=== PATIENT | female | born 1960 | race Caucasian/White ===

== ENCOUNTER 2020-05-28 17:41 | Inpatient (IN) | payer MEDICARE, MEDICAID ==
[~2020-05-28] VITALS: Ht 160 cm; Wt 61.2 kg
[~2020-05-28 17:41] MED LIST: AMBIEN10 M1 PO; COLACE CLEAR50 MG PO; DICYCLOMINE HCL10 MG PO; LYRICA100 M1 PO; MIRALAX POWDER17 G1 PO; OMEPRAZOLE20 M2 PO; PRILOSEC20 M1 PO; PROAIR HFA8.5 GM INH; VICODIN 5-3001 EACH PO; XANAX1 MG PO
[2020-05-28] MEDS ORDERED: WELLBUTRIN SR150 MG PO (18:07)
[2020-05-28] MEDS ORDERED: HYDROXYZINE HCL25 MG PO (18:08)
[2020-05-28] MEDS ORDERED: IBU800 M2 PO (18:10)
[2020-05-28] MEDS ORDERED: KLOR-CON M2020 ME1 PO (18:11)
[2020-05-28] MEDS ORDERED: LISINOPRIL20 MG PO (18:12)
[2020-05-28] MEDS ORDERED: PERCOCET 5-3251 EACH PO (18:17)
[2020-05-28] MEDS ORDERED: PROTONIX40 MG PO (18:18)
[2020-05-28] MEDS ORDERED: PROMETHAZINE25 M1 PO (18:19)
[2020-05-28] MEDS ORDERED: RISPERDAL0.5 MG PO ×2 (18:20)
[2020-05-28] MEDS ORDERED: TRAZODONE50 MG PO (18:21)
[2020-05-28] MEDS ORDERED: MOBIC15 MG PO (18:22)
[2020-05-28 19:05] VITALS: BP 124/66
[2020-05-28 20:00] VITALS: BP 124/66
[2020-05-28] MEDS ORDERED: SPIRIVA -- 3018 MCG INH (20:04)
[2020-05-28 20:06] VITALS: BP 124/66
--- NOTE | 2020-05-28 20:36 | NUR ---
GREGORY MAHONEY a 59 year old F admitted via stretcher from the ADMITTING as a emergency 72 hr. hold admission. Arrived on unit at 1905PM. ALLERGIES: SULFA AND BACTRIM. Vital signs are: 97.5-84-22 124/66. CLIENT IS PINK SLIPPED AND UNABLE TO SIGN VOLUNARY. The client signed the following forms with stated understanding: Authorization For The Release of Medical Information, Clothing List, consent and Release Forms/Receipt of Rights, Acknowledgement of Advance Directive Information, Behavioral Health Consent Form, and Informed Consent of Medications. Admitted under the services [facility]. A search was conducted and hazardous articles were removed. Client was oriented to the unit. SNACK AND FLUIDS PROVIDED BY STAFF. SHOWER COMPLETED AFTER ADMISSION PROCESS. ALBA MAYER
--- NOTE | 2020-05-28 20:45 | NUR ---
GREGORY MAHONEY a 59 year old F admitted via stretcher from the ADMITTING as a emergency 72 hr. hold admission. Arrived on unit at 1905PM. ALLERGIES: SULFA AND BACTRIM. Vital signs are: 97.5-84-22 124/66. CLIENT IS PINK SLIPPED AND UNABLE TO SIGN VOLUNARY. The client signed the following forms with stated understanding: Authorizati For The Release of Medical Information, Clothing List, consent and Release Forms/Receipt of Rights, Acknowledgement of Advance Directive Information, Behavioral Health Consent Form, and Informed Consent of Medications. Admitted under the services of JONATAN Armstrong MD. A search was conducted and hazardous articles were removed Client was oriented to the unit. SNACK AND FLUIDS PROVIDED BY STAFF. SHOWER COMPLETED AFTER ADMISSION PROCESS. ALBA MAYER
--- NOTE | 2020-05-28 20:54 | NUR ---
NOTIFIED DR DUGGAN OF ADMISSION. DR JC IS HOSPITALIST
--- NOTE | 2020-05-29 00:49 | NUR ---
24 HR chart check completed.
[2020-05-29 06:41] LABS: BASO % 0.5 % (0.0-1.0); EOS # 0.2 10*3/uL (0.0-0.4); EOS % 3.3 % (1.0-4.0); HEMATOCRIT 39.5 % (37.0-47.0); LYMPH # 1.8 10*3/uL (1.3-4.4); LYMPH % 30.8 % (27.0-41.0); MEAN CELL VOLUME 93.6 fl (81.0-99.0); MEAN CORPUSCULAR HGB 29.9 pg (27.0-31.0); MEAN CORPUSCULAR HGB CONC 31.9 g/dl (33.0-37.0); MEAN PLATELET VOLUME 9.8 fl (9.6-12.3); MONO # 0.7 10*3/uL (0.1-1.0); MONO % 11.6 % (3.0-9.0); NEUT % 53.4 % (47.0-73.0); PLATELET COUNT AUTOMATED 243 10*3/uL (130-400); RED BLOOD COUNT 4.22 10*6/uL (4.10-5.10); RED CELL DISTRI WIDTH 15.2 % (0-14.5); WHITE BLOOD COUNT 5.7 10*3/uL (4.8-10.8)
[2020-05-29 06:54] LABS: ALKALINE PHOSPHATASE 74 U/L (45-117); BUN 16 mg/dl (7-24); CHLORIDE 114 mmol/L (98-107); CHOLESTEROL 173 mg/dL (<200); CREATININE 1.09 mg/dL (0.55-1.02); HDL CHOLESTEROL 48 mg/dl (40-60); LDL CHOLESTEROL 107 mg/dL (9-159); POTASSIUM 3.8 mmol/L (3.5-5.1); SGOT/AST 10 IU/L (3-35); SGPT/ALT 17 U/L (12-78); SODIUM 142 mmol/L (136-145); TOTAL PROTEIN 6.2 gm/dL (6.4-8.2); TRIGLYCERIDES 91 mg/dl (<150); VLDL CHOLESTEROL 18 mg/dL (6-40)
--- NOTE | 2020-05-29 07:40 | NUR ---
PATIENT COMPLAINING OF CHEST PAIN ALONG CHEST, WOULD NOT ELABORATE OF ON RATING OF PAIN, FREQUENCY, RADIATING OR DESCRIPTION OF PAIN OR BURNING. NO DIAPHORESIS, NAUSEA OR EMESIS OBSERVED. THEN PATIENT STATED IT COULD BE MY ANXIETY OR STOMACH. I HAVE TO GO TO THE BATHROOM, THE JUMPED UP OUT OF BE TO THE BATHROOM FOR TOILETING NEEDS. PATIENT AMBULATED DOWN HALLWAY WITH NOT OBSERVED DISTRESS AND STATED "I FEEL BETTER, NOW MY PAIN IS ON BACK SIDE OF NECK" VITALS: 97.7, 84, 20, 113/55, 96%RA. DR. LEON NOTIFIED.
--- NOTE | 2020-05-29 07:48 | NUR ---
DR. LEON ON UNIT TO ASSESS PAIN. PATIENT VOICED HAVING PAIN ALL OVER. NO LONGER HAVING CHEST PAIN. UPDATED PATIENT ON NURSES REPORT, MEDICATIONS THAT NEED REVIEWED. PATIENT STATED "I HAVE THE MEDICAL CARD AND CAN ONLY AFFORD SOME OF THE MEDICATIONS." REPORTED TO DR. LEON OF [employer] WHEN IT WAS REFILL AND ONLY HAVE 4 PILLS LEFT THAT WERE SENT TO PHARMACY. PATIENT BECAME ANGRY TOWARDS NURSE AND STATED "I HAVE MEDICINE IN THE BOTTOM OF MY PURSE, FUCK YOU" AND AMBULATED DOWN TO HER ROOM.
[2020-05-29 08:05] VITALS: BP 124/68
--- NOTE | 2020-05-29 08:13 | NUR ---
Patient eating breakfast in dining room with peers. Respirations easy and regular. Vital signs stable. No overt distress. [facility] to see pt at this time, update given.
--- NOTE | 2020-05-29 09:00 | NUR ---
Treatment Plan meeting was held this a.m. with Dr. Rodriguez via telephone, SHEELA Tam RN, MOTOR VEHICLE REPRESENTATIVE-S and Linen Keeper in attendance. Plan for discharge Next Week. Pt. came to [facility] from Home. Will return home at this point.
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
--- NOTE | 2020-05-29 10:55 | NUR ---
ON UNIT TO SEE PT AT THIS TIME.
--- NOTE | 2020-05-29 11:22 | NUR ---
PRN ATIVAN EFFECTIVE. PATIENT APPEARS LESS DISTRESSED. CALM DEMEANOR. RESTING IN BED, NO LONGER PACING OR SHAKING OF SKIN. CONTINUE TO MONITOR.
--- NOTE | 2020-05-29 15:04 | NUR ---
Shift chart check completed.
--- NOTE | 2020-05-29 15:39 | NUR ---
PHYSICAL THERAPY Pt admitted to U for major depression screened received regarding PT. Spoke with nurse Chavez on U per staff pt is ambulating t/o unit with steady gait, no skilled needs at this time will discontinue PT orders. Paola Gilmore PT
--- NOTE | 2020-05-29 15:40 | NUR ---
OT NOTE Occupational therapy order received and chart reviewed. Patient admitted for major depression disorder and anxiety disorder. Per chart review and discussion with [facility] Nurse Kathy, patient is independent with ADLs and is ambulating throughout the [facility]. No further OT needs at this time. Will discharge OT orders. Thank you for the referral. Yuridia Guerrero, OTR/L
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
--- NOTE | 2020-05-29 18:16 | NUR ---
PATIENT COMPLAINING OF LOWER BACK PAIN, RATING PAIN 9/10, ICE PROVIDED REQUESTED AND PRN PEROCET 5/325MG PO GIVEN AT THIS TIME. PATIENT RESTING IN CHAIR AT THIS TIME.
[2020-05-29 19:17] VITALS: BP 124/68
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
--- NOTE | 2020-05-30 01:37 | NUR ---
TO DESK COMPLAINING OF INSOMNIA. APPEARED TO BE SLEEPING PER MW ON ROUNDS. RESISTIVE TO RELAXATION TECHNIQUES. ROZEREM GIVEN PER REQUEST. WILL MONITOR
--- NOTE | 2020-05-30 01:39 | NUR ---
24 HR chart check completed.
--- NOTE | 2020-05-30 04:53 | NUR ---
DOWN TO GET ICE WATER. BOOK GIVEN AT CLIENTS REQUEST T READ. HAD TO BE REDIRECTED TO ROOM SHE SAYS SHE WAS CONFUSED TO WHERE ROOM WAS.
--- NOTE | 2020-05-30 05:53 | NUR ---
APPROX 5 HOURS OF BROKEN SLEEP
[2020-05-30 08:00] VITALS: BP 119/66
--- NOTE | 2020-05-30 09:00 | NUR ---
Treatment Plan meeting was held this a.m. with Dr. Rodriguez via telephone, SHEELA Tam, RN, AT, FINAL APPLICATION REVIEWER-S and Integrated Logistics Support Manager. Plan for discharge Next Week.
[2020-05-30 11:24] LABS: BILIRUBIN NEGATIVE; BLOOD TRACE-INTACT (NEGATIVE); CLARITY CLEAR (CLEAR); COLOR YELLOW (YELLOW); GLUCOSE NEGATIVE; KETONE NEGATIVE; LEUKO ESTERASE NEGATIVE (NEGATIVE); NITRITE NEGATIVE (NEGATIVE); PH 6.5 (4.5-8.0); SPECIFIC GRAVITY 1.015 (1.001-1.030); UROBILINOGEN 0.2 E.U./dl (0.0-1.0)
[2020-05-30 11:36] LABS: BACTERIA 1+; WBC 0-2 wbc/hpf (0-5)
--- NOTE | 2020-05-30 11:57 | NUR ---
AM GROUP PT ATTENDED MORNING GROUP THERAPY AND WAS ANXIOUS AND "IN PAIN" AT THE START OF GROUP BUT WAS EASILY DISTRACTED BY MAKING CONVERSATION. PT WAS OPEN, HONES AND TALKATIVE AND WAS GIVEN ROOM TO VENT. PT IS LOOKING FORWARD TO LEARNING SOME COPING SKILLS FOR DEPRESSION AND POOR DECISION MAKING. PT EXPRESSED THAT SHE HAD THOUGHT OF KILLING HER SON'S GIRLFRIEND BECAUSE SHE IS MEAN TO HIM BUT STATED, "I WOULD NEVER DO THAT, SHE JUST MAKES ME MAD BECAUSE SHE IS MEAN TO MY SON"
--- NOTE | 2020-05-30 12:13 | NUR ---
Nutriitonal Support Services Note: Appetite is fair for meals, pt is not eating well. Regular diet as ordered. Scabs noted to arms. Recommend Ensure po TID with meals to help increase kcal and protein. Will follow. Amber Brown Rdn Ld
--- NOTE | 2020-05-30 15:49 | NUR ---
PM GROUP/MANICURES PT ATTENDED AFTERNOON GROUP THERAPY AND PARTICIPATED BY HAVING HER NAILS DONE AND LISTENING TO MUSIC. PT EXPRESSED NO SUICIDAL OR HOMOCIDAL IDEATIONS WHILE IN GROUP. PT WAS PLEASANT AND TALKATIVE.
[2020-05-30 19:54] VITALS: BP 106/67
--- NOTE | 2020-05-30 20:43 | NUR ---
REDIRECTED CLIENT ON USE OF ATIVAN. STATES SHE WANTS IT FOR SLEEP AND TOLDL HER THAT IS NOT IT'S PURPOSE AND WE HAVE OTHER THINGS. THINKS SHE WILL GET RX OF ATIVAN UPON DISCHARGE AND CLARIFIED THAT WOULD NOT HAPPEN. WILL CONTINUE TO MONITOR
--- NOTE | 2020-05-30 20:50 | NUR ---
Patient alert and oriented to person,place and time. Mood calm and cooperative. Multiple requests to use phone. Placed phone call to David,patient's son,but answering pedro picked up. Denies SI/HI,hallucinations or delusions. No s/s of responding to internal stimuli noted at this time. Patient compliant with HS medications without any difficulty. Provided 1:1 for emotional support. Redirected when needed. Plan to continue to encourage medication compliance. Also continue to provide emotional support and redirection when needed. Will continue to monitor moods/behaviors. Q 15 minute safety checks continued and maintained. See [facility] flowsheet for further documentation.
--- NOTE | 2020-05-31 06:10 | NUR ---
Patient slept approx 6 hours sleep throughout shift. Q 15 minute safety checks continued and maintained.
[2020-05-31 09:07] LABS: FOLLICLE STIMULATING HORMONE 79.8 mIU/mL (.); PROGESTERONE 0.1 ng/mL (.)
--- NOTE | 2020-05-31 09:11 | NUR ---
Treatment Plan meeting was held this a.m. with Dr. Rodriguez RN, DENTAL INSURANCE COORDINATOR-S and Textiles Sales Representative. Plan for discharge Next Week. Pt. will return home at discharge.
[2020-05-31 09:17] VITALS: BP 144/87
--- NOTE | 2020-05-31 09:18 | NUR ---
DR SMITH AND TEAM ON UNIT TO ASSESS PT.
--- NOTE | 2020-05-31 10:03 | NUR ---
PT C/O LOWER BACK PAIN 07/14. PT STATED THAT HER MOBIC DID NOT HELP, PT MEDICATED WITH PERCOCET PRN PER ORDERS. WILL CONTINUE TO MONITOR.
--- NOTE | 2020-05-31 13:45 | NUR ---
SPOKE WITH DR SMITH AT [phone] RE: PT REQUEST FOR MIRALAX AND ALSO THAT SHE RECEIVES AN INHALER ROUTINELY AT HOME AND HAS NOT RECEVIED ONE HERE. PER DR SMITH HE WILL GO AHEAD AND TAKE CARE OF THAT.
--- NOTE | 2020-05-31 14:59 | NUR ---
Met with pt and made numerous calls to pt's creditors, past employers, and utiltiy assistance programs. Problem solved with pt. Discussed pt's previous life choices and lessons that pt has learned from these choices.
--- NOTE | 2020-05-31 16:12 | NUR ---
P: PT REPORTS FEELING SAD AND DEPRESSED I: PROVIDE EMOTIONAL SUPPORT AND 1:1 FOR PT TO VOICE FEELINGS, ENCOURAGE MED COMPLIANCE AND PROVIDE MED EDUCATION, ENCOURAGE GROUP PARTICIPATION AND SOCIALZIATION R: PT ALERT TO PERSON, PLACE, TIME AND SITUATION. PT MED COMPLIANT WITHOUT DIFFICULTY. PT CONTINUES TO REPORT FEELING SAD AND DEPRESSED. PT AMBULATORY THROUGHOUT UNIT, GAIT STEADY. PT CONTINENT OF BOWEL AND BLADDER. NO HALLUCINATIONS OR DELUSIONS NOTED. PT DENIES ANY SUICIDAL THOUGHTS OR BEHAVIORS. P: MONITOR PT BEHAVIORS ON Q15 MIN SAFETY CHECKS, ENCOURAGE MED COMPLIANE AND PROVIDE MED EDUCATION, PROVIDE EMOTIONAL SUPPORT AND 1:1 FOR PT TO VOICE FEELINGS, ENCOURAGE GROUP PARTICIPATION AND SOCIALZATION.
--- NOTE | 2020-05-31 16:50 | NUR ---
PT COMPLAINED OF HEADACHE MEDICATED WITHN TYLENOLM 650 MG PO PRN PER ORDERS.
[2020-05-31 20:00] VITALS: BP 132/61
--- NOTE | 2020-05-31 21:38 | NUR ---
Patient alert and oriented to person,place and time. Mood calm and cooperative. Denies SI/HI,hallucinations or delusions. No s/s of responding to internal stimuli noted at this time. Patient compliant with HS medications without any difficulty. Provided 1:1 for emotional support. Redirected when needed. Plan to continue to encourage medication compliance. Also continue to provide emotional support and redirection when needed. Will continue to monitor moods/behaviors. Q 15 minute safety checks continued and maintained. See [facility] flowsheet for further documentation.
--- NOTE | 2020-06-01 05:56 | NUR ---
Patient slept approx. 7 hours throughout shift. Q 15 minute safety checks continued and maintained.
--- NOTE | 2020-06-01 06:32 | NUR ---
Medicated with Percocet po prn for c/o chronic back discomfort patient rated 6/10. Will monitor effectiveness.
[2020-06-01 07:23] VITALS: BP 110/73
--- NOTE | 2020-06-01 07:27 | NUR ---
Patient resting quietly with no c/o discomfort. Respirations easy and regular. Vital signs stable. No overt distress. RHONDA KRUGER
--- NOTE | 2020-06-01 09:41 | NUR ---
DR SMITH ON UNIT TO ASSESS PT, UPDATE PROVIDED.
--- NOTE | 2020-06-01 10:36 | NUR ---
P- LABILE MOOD. EASILY AGITATED. PREOCCUPIED WITH MAKING PHONE CALLS. I- ORIENTATION, MOOD AND BEHAVIORS ASSESSED. ASSESSED PT FOR SI/HI, INTENT OR PLAN. ASSESSED PT FOR S/S HALLUCINATIONS, PARANOIA AND/OR DELUSIONS. MEDICATIONS ADMINISTERED PER PHYSICIAN'S ORDERS. ASSISTANCE WITH ADL CARE PROVIDED NEEDED. ENCOURAGED PT TO ATTEND AND PARTICIPATE IN [facility] GROUPS AND ACTIVITIES. R- PT IS ALERT AND ORIENTED X4. MEMORY INTACT. RESPS EASY AND EVEN ON ROOM AIR. MOOD IS LABILE. PT CALM, PLEASANT AND COOPERATIVE THIS MORNING. PT DENIED SI/HI, INTENT OR PLAN. NO HALLUCINATIONS, PARANOIA OR DELUSIONS NOTED. PT IS PREOCCUPIED WITH MAKING PHONE CALLS. PT BEGAN TALKING ABOUT WHO SHE WANTED TO CALL SOON SHE WOKE UP THIS MORNING AND HAS CONTINUED TO MAKE FREQUENT PHONE CALLS STARTING AT EXACTLY 9AM. PT BECOMING AGITATED WHEN HER PHONE CALLS GO UNANSWERED BY THE OTHER DEMOCRAT. STAFF ATTEMPTED TO REDIRECT PT TO GROUP AND THEN ATTEMPT PHONE CALLS AGAIN LATER. PT BECAME EXPLOSIVELY ANGRY. THREW CLOTHES DOWN THE VELIZ. STORMED UP AND DOWN THE HALLWAY YELLING AND CURSING. PUSHING ON DOORS. YELLING "YOU ALL AREN'T HELPING ME! I WANT TO GO HOME!" PT NOT PHYSICALLY AGITATED AT THIS TIME BUT IS VERBALLY AGITATED. ABE TEACHER ON UNIT AND ENGAGED IN 1:1 WITH PT AT THIS TIME. PT IS MEDICATION COMPLIANT WITHOUT DIFFICULTY. NO DISTRESS NOTED. P- PLAN TO CONTINUE CURRENT TREATMENT, CONTINUE TO MONITOR MOOD AND BEHAVIORS. PROVIDE APPROPRIATE REORIENTATION, REDIRECTION AND 1:1 NEEDED. CONTINUE TO ENCOURAGE MEDICATION COMPLIANCE WELL GROUP ATTENDANCE AND PARTICIPATION.
--- NOTE | 2020-06-01 11:40 | NUR ---
AM GROUP/SOCIALIZATION PT WAS ON THE PHONE AT THE START OF GROUP AND WAS ASKED BY NURSING TO GET OFF THE PHONE AND ATTEND GROUP THERAPY. PT BECAME VERY AGITATED AND STORMED TO THE END OF THE VELIZ YELLING, "I'M LEAVING, I WANT MY CAR AND I'M OUT OF HERE!" PT ATTEMPTED TO OPEN THE DOOR AND UNSUCCESSFUL, STORMED BACK UP THE VELIZ, YELLING OBSENITIES AND PUNCHED THE WALL A FEW TIMES HEADING BACK TO HER ROOM. PT WAS ADDRESSED BY NURSING. PT DID NOT ENTER GROUP THERAPY.
--- NOTE | 2020-06-01 13:06 | NUR ---
From this technical publications writer's office, heard pt yelling and observed pt quickly walk past and pound on the exit door. This technical publications writer went out into novak. Pt yelled as she was walking the opposite direction in the novak, "I want the hell out of here! I want it now!" Observed pt punch the novak foster as she went toward her room. Pt then walked into her room and slammed the door. This technical publications writer got report from RN about precipitating event to pt's behavior. Went to pt and met with her individually. Allowed pt to express her emotions. Assisted pt in making a call to her landlord, [employer] for HEAP assistance, a creditor, her son's father, and numerous attempts to call pt's son. Pt was anxious and becoming more anxious each time that she was unable to reach her son. This technical publications writer worked to ground pt to the moment and confirm with pt what pt knows from most recent phone conversations. Pt was finally able to speak to her son David. He explained to pt that he doesn't always have phone service in certain areas of the apartment. This technical publications writer heard David voicing support to pt. Left pt at nurses' station where pt was in need of making one more phone call to HEAP with additional information that she had gotten from David. This technical publications writer did speak to Kayla from case management at [facility] and confirmed that pt's car is in the parking garage there and can remain there until pt is able to pick it up.
--- NOTE | 2020-06-01 13:39 | NUR ---
Treatment team held this AM with Anel Escobedo TITLE SPECIALIST, RN, leasing coordinator, and this JANITOR CUSTODIAN-S. Pt to discharge next week to home with follow-up at [facility]. A referral will also be made to [facility].
--- NOTE | 2020-06-01 14:58 | NUR ---
PATIENT COMPLAINING OF BEING CONSTIPATED. ABDOMINAL ASSESSMENT COMPLETED. BOWEL SOUND ACTIVIE X 4 TO ALL QUADRANTS. PRN MOM 30ML AND BENTYL 10 MG PO GIVEN AT THIS TIME.
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
--- NOTE | 2020-06-01 18:25 | NUR ---
PT CAME TO THE DESK ASKING TO CALL HER SON AGAIN, THIS NURSE ADVISED PT THAT WE HAVE ALREADY CALLED HIM 2X WITH NO ANSWER AND HE HAS NOT CALLED BACK, ADVISED THAT WE CANNOT CONTINUE TO CALL HIM WHEN HE IS NOT ANSWERING THAT HE WILL RETURN THE CALL WHEN HE IS ABLE PT STATED "WELL HIS PHONE IS ON SILENT AND I NEED TO KNOW WHERE MY MONEY IS AND THE DR TOLD ME I COULD CALL WHENEVER I WANTED." PT ARUGEMENTATIVE WITH STAFF, THIS NURSE ADVISED THAT SHE IS ABLE TO MAKE CALLS BUT WE WILL NOT CONTINUE TO CALL SOMEONE REPEATEDLY, THAT IF HE DOES NOT CALL BACK BY 8PM, WE WILL TRAY AGAIN. PT ENTERS THE DINING ROOM AND BEGIN RUMMAING THROUGH THE CABINET THAT THE MENTAL HEALTH WORKER WAS LOOKING IN, WHEN ATTEMPTED TO REDIRECT AND ADVISED THAT STAFF COULD PROVIDE ASSISTANCE, PT BEGAN YELLING OUT AT STAFF, "I WANT TO GET THE HELL OUT OF HERE AND GO THE HELL HOME." PT RETURNED TO HER ROOM SLAMMING THE DOOR. PT RETURNED TO THE NURSES STATION AND STAFF CONTINUED TO PROVIDE EMOTIONAL SUPPORT AND 1:1 FOR PT TO VOICE FEELINGS AND PROCESS HER FEELINGS. WILL CONTINUE TO MONITOR.
[2020-06-01 20:00] VITALS: BP 115/69
--- NOTE | 2020-06-01 20:16 | NUR ---
Medicated with Percocet po prn at patient's request for c/o chronic back pain. Will monitor effectiveness.
--- NOTE | 2020-06-01 21:30 | NUR ---
Patient resting quietly in chair in diningroom with no complaints of back discomfort voiced at this time.
--- NOTE | 2020-06-01 22:42 | NUR ---
Patient alert and oriented to person,place and time. Mood calm and cooperative. Denies SI/HI,hallucinations or delusions. No s/s of responding to internal stimuli noted at this time. Patient compliant with HS medications without any difficulty. Patient preoccupied with medication and frequently asking for medication. Provided 1:1 for emotional support. Redirected when needed. Plan to continue to encourage medication compliance. Also continue to provide emotional support and redirection when needed. Will continue to monitor moods/behaviors. Q 15 minute safety checks continued and maintained. See [facility] flowsheet for further documentation.
--- NOTE | 2020-06-02 00:04 | NUR ---
Medicated with Rozerem po prn at request of patient for insomnia. Will monitor effectiveness.
--- NOTE | 2020-06-02 05:19 | NUR ---
Patient slept approx. 3 hours of interrupted sleep throughout shift. Q 15 minute safety checks continued and maintained.
[2020-06-02 07:25] VITALS: BP 106/78
--- NOTE | 2020-06-02 08:46 | NUR ---
PT ALERT TO PERSON AND PLACE. WITHDRAWN TO SELF. QUIET TIN DONNINGROOM. NO HALLUCINATIONS OR DELUSIONS NOTED. MEDICATION COMPLIANT. MEDICATION EDUCATION PROVIDED. 1:1 PROVIDED FOR THERAPEUITC COMMUNICATION. PT TEARFUL AT TIMES. ISOLATIVE TO ROOM. PT DENIES SI/HI. REPORTS BEING SAD. STATES SHE IS EATING OK HOWEVER IS NOT SLEEPING WELL. AMBULATORY WITH A STEADY GAIT. WILL CONTINUE TO ENCOURAGE MEDICATION COMPLAINCE AND INCREASED INTERACTIONS WITH STAFF AND PEERS. MONITOR BEHAVIORS WITH Q15 MINUTE SAFETY. SEE [facility] FLOWSHEET FOR SPECIFIC MONITORING.
--- NOTE | 2020-06-02 09:06 | NUR ---
DR SMITH ON UNIT TO ASSESS PT, UPDATE PROVIDED.
--- NOTE | 2020-06-02 16:20 | NUR ---
PT C/O OF STOMACH CRAMPS TO RESPIRATORY THERAPIST. PRN BENTYL AND TYLENOL GIVEN PER ORDER. PT THEN STATED SHE COULDNT HAVE A BOWEL MOVEMENT AND WAS PROVIDED MOM. PT THEN STATED SHE WAS HAVING ACID REFLUX AND REQUESTED A PRN. PRN MAALOX GIVEN AT THIS TIME. EXPLAINED TO THE PT SHGE TAKES 2 MEDS FOR ACID REFLUX AND THAT PAIN MEDICATION CAN CAUSE CONSTIPATION. PT STATED SHE UNDERSTOOD. WILL MONITOR EFFECTIVENESS OF MEDICATION.
--- NOTE | 2020-06-02 18:00 | NUR ---
DR ON UNIT TO ASSESS PT. DR STATED NOT TO GIVE THE PT A PERCOCET UNTIL HER BOWEL ISSUE IS RESOLVED. WITNESSED BY 2ND RN.
--- NOTE | 2020-06-02 18:44 | NUR ---
SPOKE WITH DR CALERO RE: PT STATING THAT SHE PREVIOUSLY TOOK CARAFATE THREE TIMES A DAY TO HELP HER STOMACH ISSUES BUT DID NOT KEEP HER FOLLOW UP APPT WITH HER OUTPT PROVIDER, PER HE WILL SPEAK TO DR SMITH TOMORROW TO SEE IF HE WANTS TO ORDER THE MEDICATION.
[2020-06-02 20:00] VITALS: BP 103/87
--- NOTE | 2020-06-02 20:31 | NUR ---
24 HR chart check completed.
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
--- NOTE | 2020-06-02 21:45 | NUR ---
ENTERED PTS ROOM ATTEMPTING TO TALK TO HER. SHE IMMEDIATELY BEGAN YELLING & THREATENED TO KILL STAFF. SHE THREW A CUP OF WATER IN THE AIR & QUICKLY JUMPED OFF HER BED & ATTEMTPED TO THROW A CHAIR AT STAFF & RAN AROUND HER BED GRABBING THE DRESSER & TRYING TO THROW IT. SHE RAN AROUND BED & ATTEMPTED TO FLIP MATTRESS. JUMPED OVER MATTRESS SWINGING & KICKING AT STAFF SEVERAL TIMES. MEDICATED AT 2130 WITH GEODON 10 MG IM. CHAIR & DRESSER REMOVED FROM PTS ROOM FOR SAFETY. DRESSER WAS FOUND TO HAVE BAGS OF CHIPS & PARTIALLY EATEN FOOD IN DRAWER.
--- NOTE | 2020-06-02 23:44 | NUR ---
SLEEPIN IN BED AT THIS TIME. APPEARS GEODON EFFECTIVE FOR MANAC EPISODE. MOVING SELF AROUND IN BED. WILL CONTINUE TO MONITOR FOR CHANGES IN MOOD/BEHAVIOR AND Q 15 MINS AND PRN FOR SAFETY
--- NOTE | 2020-06-03 05:25 | NUR ---
PT HAS SLEPT PAST 2229
[2020-06-03 07:58] VITALS: BP 104/62
--- NOTE | 2020-06-03 10:00 | NUR ---
DR. SMITH ON UNIT TO ASSESS PATIENT.
--- NOTE | 2020-06-03 11:57 | NUR ---
PT GIVEN MAG CITRATE FOR CONSTIPATION. PT STATED SHE VOMITED SOME UP IN THE TOILET. PT STATED SHE THREW UP WHAT LUNCH SHE ATE.
--- NOTE | 2020-06-03 12:00 | NUR ---
DR UPDATED ON PT STATING SHE VOMITED. DR STATED HE WOULD LOOK AT MEDS AND MAYBE ORDER ZOFRAN FOR NAUSEA.
--- NOTE | 2020-06-03 13:40 | NUR ---
RESPIRATORY THERAPIST ON UNIT TO GIVE PT A BREATHING TREATMENT. PT THEN STATED SHE WAS DIZZY AND LAID ON THE FLOOR. PT THEN TOLD THIS NURSE SHE FELL; HOWEVER THE THERAPIST STATED SHE LAID DOWN. NO INJURIES NOTED AND PT ASSISTED UP TO CHAIR. VS WNL. ROM WNL. PT THEN UP WALKING AFTER BREATHING TREATMENT AGAIN WITH A STEADY GAIT. PT DENIES ANY DIZZINESS. EXPLAINED TO PT SHE IS TIRED AND NEEDS TO RELAX.
--- NOTE | 2020-06-03 16:25 | NUR ---
PT CONTINUES TO C/O PAIN IN HER ABDOMEN. DR SMITH ON THE UNIT TO ASSESS PT AND ORDERED A KUB, EKG, MAG CITRATE, AND CARAFATE. PT DRANK MAG CITRATE AND THEN VOMITIED. PT CONTINUES TO C/O PAIN AND CRAMPING. EXPLAINED TO THE PT IT WILL CONTINUE TO CAUSE CRAMPING UNTIL THE PT HAS A BOWEL MOVEMENT. PT IN/OUT OF THE BATHROOM STATING SHE DUG HERSELF OUT. PT STATED SHE WAS THEN ABLE TO HAVE A BOWEL MOVEMENT. PT SHOWERED DUE TO INCONTINCE OF THE BOWEL. AMBULATING WITH A STEADY GAIT AT THIS TIME AND NO C/O PAIN IN THE ABDOMEN AT THIS TIME. WILL CONTINUE TO MONITOR HER. A&O X3. PREOCCUPIED WITH BOWELS TODAY. ENCOURAGED PT TO WALK AROUND AND INCREASE FLUID INTAKE. IRRITABLE MOOD AT TIMES. WITHDRAWN TO SELF. NO HALLUCINATIONS OR DELUSIONS NOTED AT THIS TIME. 1:1 PROVIDED FOR THERAPEUTIC COMMUNICATION. DISCUSSED COPING SKILLS WITH THE PATIENT AND APPROPRIATE BEHAVIORS VS NON APPROPRIATE BEHAVIORS. BEHAVIORS MONITORED WITH Q15 MINUTE SAFETY CHECKS. WILL CONTINUE TO ASSIST PT IN IDENTIFYING COPING SKILLS AND WILL MONITOR BEHAVIORS WITH Q15 MINUTE SAFETY CHECKS. WILL CONTINUE TO OFFER 1:1 FOR THERAPEUTIC COMMUNICATION. SEE [facility] FOR SPECIFIC MONITORING.
--- NOTE | 2020-06-03 18:23 | NUR ---
CALL PLACED TO DR FRANCISCO REGARDING AN ALTERNATE PAIN MEDICATION THAT IS NOT SO HARSH ON THE BOWELS. STATED TO PUT AN ORDER IN FOR LIDODERM PATCH.
--- NOTE | 2020-06-03 19:37 | NUR ---
24 HR chart check completed.
[2020-06-03 20:00] VITALS: BP 110/69
--- NOTE | 2020-06-03 23:20 | NUR ---
PT HAS BEEN VERY APOLOGETIC NUMEROUS TIMES TO STAFF REGARDING HER BEHAVIORS LAST NIGHT. HAS DRAWN PICTURES WITH MESSAGES ON THE BACK OF THEM ASKING TO FORGIVE HER & STATING SHE IS VERY SORRY. NO BEHAVIORS THIS EVENING. PT HAS BEEN CALM & INFORMS STAFF OF HER ACTIONS,. (I'M GOING TO GO TO THE BATHROOM, I"M JUST GETTING A CUP OF ICE. I'M GOING TO WRITE A LETTER TO MY SON". ATE SNACK. COMPLAINT WITH MEDICATIONS. REQUESTED & MEDICATED WITH TYLENOL 650 MG @ 2042 FOR C/O LOWER BACK PAIN. RATED PAIN 10/10. STATED TYLENOL DID HELP A LITTLE.
--- NOTE | 2020-06-04 05:59 | NUR ---
PT SLEPT PAST 2330 INTERMITTENTLY. SLEPT APPX 4-5 HOURS
[2020-06-04 07:52] VITALS: BP 116/65
--- NOTE | 2020-06-04 09:00 | NUR ---
Treatment Plan meeting was held this a.m. with Dr. Rodriguez, SHEELA Tam, RN, AT, [employer] C[employer]URIST[employer] and Hand Ironer. Plan for discharge Thursday with return home.
--- NOTE | 2020-06-04 11:26 | NUR ---
Spoke with Sean of [facility] and referred pt there. Pt is scheduled to begin on 06-19-20.
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
--- NOTE | 2020-06-04 12:46 | NUR ---
PT. REFUSED AEROSOL TREATMENT AT THIS TIME. STATES SHE WANTS TO SLEEP
--- NOTE | 2020-06-04 13:06 | NUR ---
PATIENT ALERT AND ORIENTED X4. ABLE TO VOICE NEEDS. LESS DEPRESSED MOOD, WITH IMPROVEMENT NOTED. DENIES SI/HI. DENIES HALLUCINATIONS AND DELUSIONS. MORE GOAL ORIENTED AND WANTS TO BE DISCHARGED. CALM DEMEANOR AND PLEASANT WITH STAFF. INTERACTIVE WITH STAFF. DID PARTICIPATE IN MORNING GROUP. CONTINUE TO ENCOURAGE MEDICATION COMPLIANCE WITH EDUCATION. ENOCURAGE THE USE OF COPING SKILLS. INDEPENDENT WITH ADL'S. PATIENT VOICED THAT SHE IS NOT CONSTIPATED. LIDODERM PATCH APPLIED TO LOWER BACK FOR PAIN. AMBULATORY WITH STEADY GAIT. WILL CONTINUE TO MONITOR FOR HER MOOD, ANY SUICIAL IDEATION. PROVIDE ONE ON ONE FOR EMOTIONAL SUPPORT.
--- NOTE | 2020-06-04 14:19 | NUR ---
Met with pt individually this afternoon. Assisted pt in completing a document that will assist with one of pt's bills. Problem solved with pt. Discussed discharge plan of scheduling with Rmaila Figueroa FULL STACK DEVELOPER at [facility] and requesting a counselor and child welfare caseworker through that agency. Also informed pt that her first day at the [facility] is 06/19/20. During meeting pt stated that she felt clammy and lightheaded. Pt was also slurring her words. Informed RN of this who then evaluated pt.
--- NOTE | 2020-06-04 14:36 | NUR ---
TOM CORRIGAN UPDATED ON PT STATING SHE FEELS DIZZY. PT SLURRING WORDS SLIGHTLY AND SLIGHTLY OFF BALANCE WHILE WALKING. NEW ORDERS RECEIVED TO DECREASE THE HS DOSE OF KLONOPIN AND SEROQUEL. VITAL SIGNS WNL.
--- NOTE | 2020-06-04 15:47 | NUR ---
PM GROUP/RELAXATION PT WAS IN WITH THE BRIMMER BLOCKER AT THE START OF GROUP AND WAS BROUGHT IN BY DARA STATING THAT SHE WAS FEELING DIZZY BUT WAS CHECKED BY THE NURSE. PT WAS GIVEN DRINKS AND SNACKS AND BECAME IRRITATED WHEN I TOLD HER TO FINISH THOSE BEFORE WORKING ON HER BIRDHOUSE. PT BECAME INPATIENT WITH "[employer]" AND WAS GIVEN THE BIRDHOUSE TO WORK ON. PT HAS FLIGHT OF IDEAS AND HAS DIFFICULTY FOCUSING ON ONE TASK. WHILE WORKING ON THE BIRDHOUSE WANTED COLORED PENCILS TO COLOR, WHEN TOLD THAT SHE HAD TO WAIT UNTIL THE MATERIALS FOR THE BIRDHOUSE WERE CLEANED UP, PT THEN WANTED ANOTHER BIRDHOUSE. GROUP WAS OVER AND PT WAS INSISTING TO WORK ON PROJECTS EVEN THOUGH GROUP WAS OVER. PT BECAME SULLEN AND LEFT THE DAYROOM.
--- NOTE | 2020-06-04 19:43 | NUR ---
24 HR chart check completed.
[2020-06-04 20:00] VITALS: BP 104/56
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
--- NOTE | 2020-06-05 05:50 | NUR ---
PT HAS SLEPT QUIETLY PAST 2214 WITH 1 BRIEF AWAKENING TO GO TO THE BATHROOM
[2020-06-05 07:54] VITALS: BP 130/55
--- NOTE | 2020-06-05 07:54 | NUR ---
Bib DIRECTOR TRANSITION notified of discharge for today at 10am
[2020-06-05] MEDS ORDERED: MIRTAZAPINE15 M2 PO (08:24)
[2020-06-05] MEDS ORDERED: LACTULOSE20 GM/30 M PO (08:24)
[2020-06-05] MEDS ORDERED: CLONAZEPAM0.5 M2 PO (08:24)
[2020-06-05] MEDS ORDERED: QUETIAPINE FUMA50 M1 PO (08:24)
--- NOTE | 2020-06-05 09:00 | NUR ---
Treatment Plan meeting was held this a.m. with Dr. Rodriguez via telephone, SHEELA Tam, RN, AT, BIOINFORMATICS ASSOCIATE-S and Elementary School Professional in attendance. Plan for discharge Today. Pt. will return home. Follow up appointments scheduled [facility], Dr. Eckert and Tray MARSHALL.
--- NOTE | 2020-06-05 10:03 | NUR ---
ONE ON ONE WITH PATIENT OVER DISCHARGE INSTRUCTIONS, PATIETNT RECEPTIVE TO INSTRUCTIONS. ALL BELONGING GATHERED. PATIENT ASSISTED TO WHEELCHAIR. ASSISTED OFF FLOOR WITH STAFF ASSIST WITH BELONGING AND DISCHARGE INSTRUCTION SENT WITH PATIENT TO PRIVATE VEHICLE.
--- NOTE | 2020-06-05 10:30 | NUR ---
Discharge Paperwork Faxed to [facility], Dr. Eckert and [facility].
== END 2020-06-05 10:03 | disposition home or self-care (01) | DRG 885 ==
LOC: 3N 17:41
PROVIDERS: Counselor Professional; ADMIT Psychiatry & Neurology Psychiatry; ATTEND Psychiatry & Neurology Psychiatry
DX: F33.2 Major depressive disorder, recurrent severe without psychotic features (principal); R45.851 Suicidal ideations; E44.0 Moderate protein-calorie malnutrition; F12.10 Cannabis abuse, uncomplicated; G47.00 Insomnia, unspecified; R73.9 Hyperglycemia, unspecified; F17.210 Nicotine dependence, cigarettes, uncomplicated; J43.9 Emphysema, unspecified; G89.29 Other chronic pain; K58.9 Irritable bowel syndrome, unspecified; F41.9 Anxiety disorder, unspecified; M54.5 Low back pain; J45.20 Mild intermittent asthma, uncomplicated; E87.8 Other disorders of electrolyte and fluid balance, not elsewhere classified; E77.8 Other disorders of glycoprotein metabolism; F34.1 Dysthymic disorder; K21.9 Gastro-esophageal reflux disease without esophagitis; K59.00 Constipation, unspecified; F43.10 Post-traumatic stress disorder, unspecified; R45.850 Homicidal ideations; Z20.828 Contact with and (suspected) exposure to other viral communicable diseases; Z71.6 Tobacco abuse counseling; Z90.710 Acquired absence of both cervix and uterus; Z82.3 Family history of stroke; Z83.3 Family history of diabetes mellitus; Z82.0 Family history of epilepsy and other diseases of the nervous system; Z88.2 Allergy status to sulfonamides; Z88.8 Allergy status to other drugs, medicaments and biological substances; Z79.899 Other long term (current) drug therapy; Z68.23 Body mass index [BMI] 23.0-23.9, adult